=== PATIENT | female | born 1960 | race Caucasian/White ===

== ENCOUNTER → 2016-10-15 | Day surgery (SDC) | payer BC ==
[~2016-10-15] MED LIST: FENTANYL PF 100 MCG/2 ML VIAL. IV PRN; HYDROMORPHONE 2 MG/ML VIAL. IV PRN; IV RINGERS,LACTATED 1000ML 1,000 ML IV SCH; LIDOCAINE 1% 1 ML SYRINGE. ID PRN; LIDOCAINE 2% PF Vial for OR 5 ML VIAL. ONE; MORPHINE SULFATE 2 MG/ML DISP.SYRIN. IV PRN; ONDANSETRON PF 4 MG/2 ML VIAL. IV PRN; PROCHLORPERAZINE 10 MG/2 ML VIAL. IV PRN; PROPOFOL 40 ML IV ONE
[2016-10-15 09:57] VITALS: BP 86/47
--- NOTE | 2016-10-16 15:25 | PATHOLOGY ---
PATHOLOGY REPORT * * * * * * * * FINAL DIAGNOSIS: A. Small bowel biopsy: - No significant pathologic abnormalities. B. Gastric antral biopsy: - Mild congestion and slight chronic inflammation. C. Distal esophageal biopsy: - Segments of hyperplastic squamous esophageal mucosa with focal intraepithelial eosinophils and ulceration. See comment. D. Middle esophageal biopsy: - Segments of mildly hyperplastic squamous esophageal mucosa identified. E. Colon biopsy, transverse colon polyp: - Tubular adenoma. - Mucosal-associated lymphoid aggregate. COMMENT: Sections of the small bowel biopsy reveal segments of duodenal and small intestine mucosa. Where best oriented, the mucosal villi show no sprue-like changes or significant inflammatory changes. Sections of the gastric antral biopsy reveal gastric antral mucosa showing focal congestion and slight chronic inflammation. An immunoperoxidase stain for Helicobacter is obtained. No Helicobacter organisms are identified. Sections of the distal esophageal biopsy reveal segments of hyperplastic squamous esophageal mucosa and acute inflammatory exudate consistent with ulceration. The squamous esophageal mucosa shows focal intraepithelial eosinophils. These foci show less than 20 intraepithelial eosinophils per high power field. The findings are consistent with reflux esophagitis with ulceration. There is no evidence of Licona's change, dysplasia, or malignancy. Sections of the middle esophageal biopsy reveal segments of mildly hyperplastic squamous esophageal mucosa. There are no intraepithelial eosinophils. There is no evidence of Licona's change, dysplasia or malignancy. Sections of the transverse colon biopsy reveal a tubular adenoma showing no high grade dysplasia or evidence of malignancy. There is also a mucosal-associated lymphoid aggregate. (JPM:csd; d/t: 10/16/2016) Immunoperoxidase stain: Helicobacter pylori (B1) REPORT ELECTRONICALLY SIGNED BY: Amrit Alexander M.D. DATE/TIME: 10/16/2016 15:24 * * * * * * * * GROSS PATHOLOGY: A. Received in formalin labeled "AbrahamsusanneLeidy and small bowel bx," are 3 segments of mathias soft tissue measuring 1.2 x 0.3 x 0.2 cm in aggregate dimensions and ranging from 0.3 to 0.5 cm in maximum dimension. The specimen is submitted entirely in cassette A1. B. Received in formalin labeled "Leidy Lewis and gastric antrum bx," are 3 segments of mathias soft tissue measuring 1.1 x 0.2 x 0.2 cm in aggregate dimensions and ranging from 0.3 to 0.5 cm in maximum dimension. The specimen is submitted entirely in cassette B1. C. Received in formalin labeled "Leidy Lewis and distal esophagus bx," are 3 segments of mathias soft tissue measuring 1.0 x 0.2 x 0.2 cm in aggregate dimensions and ranging from 0.2 to 0.5 cm in maximum dimension. The specimen is submitted entirely in cassette C1. D. Received in formalin labeled "Leidy Lewis and mid esophagus bx," are 2 segments of mathias soft tissue measuring 0.8 x 0.2 x 0.2 cm in aggregate dimensions and measuring 0.3 and 0.5 cm in maximum dimension. The specimen is submitted entirely in cassette D1. E. Received in formalin labeled "Leidy Lewis and transverse colon polyp," are 2 segments of mathias soft tissue measuring 0.9 x 0.2 x 0.2 cm in aggregate dimensions and measuring 0.3 and 0.6 cm in maximum dimension. The specimen is submitted entirely in cassette E1. (TTL; 10/15/2016) INITIAL CPT CODE(S): A; 75038 B; 43761, 16288 C; 37210 D; 11143 E; 00975 Professional services [place] [address] Technical services performed by [facility] at [address] [place] [address], [facility] [address], [place] [address]. SPECIMEN(S) RECEIVED: A.Small bowel biopsy B.Gastric antrum biopsy C.Distal esophagus biopsy D.Mid esophagus biopsy E.Transverse colon polyp CLINICAL HISTORY: GI bleed PATIENT: LEIDY LEWIS /AGE: 804/05/1960 (Age: 56) PATIENT #: [id number] ALT CASE #: SPECIMEN COLLECTION DATE: 10/15/2016 SPECIMEN RECEIVED DATE: 10/15/2016 [facility] - [id number] [place] [address] - PHONE: [phone] * * * END OF REPORT * * *
== END | disposition home or self-care (01) ==
LOC: ENDOS 07:45
PROVIDERS: ATTEND Internal Medicine Gastroenterology
DX: Z12.11 Encounter for screening for malignant neoplasm of colon (principal); D12.3 Benign neoplasm of transverse colon; K64.0 First degree hemorrhoids; Z80.0 Family history of malignant neoplasm of digestive organs; K20.8 Other esophagitis; K44.9 Diaphragmatic hernia without obstruction or gangrene; D64.9 Anemia, unspecified; K21.9 Gastro-esophageal reflux disease without esophagitis; F41.9 Anxiety disorder, unspecified; F32.9 Major depressive disorder, single episode, unspecified
CPT/HCPCS: 43239; 45380; 88305; J2704